=== PATIENT | female | born 1990 | race Caucasian/White ===

== ENCOUNTER 2017-07-03 07:12 | Emergency (ER) | payer BC ==
[2017-07-03] MEDS ORDERED: Ibuprofen PED LIQ 100 MG/5 ML UDC PO ONE (07:33)
--- NOTE | 2017-07-03 07:40 | UC ---
FLU HPI - HPI Summary HPI Summary: 3 DAYS OF COUGH, CONGESTION, BARAJAS, FEVER TMAX 102.5, CHILLS, MYALGIAS AND FATIGUE. NO ST, N/V/D. NO FLU SHOT THIS SEASON. - History of Current Complaint Chief Complaint: UCRespiratory Stated Complaint: FLU SYMPTOMS Time Seen by Provider: 07/03/17 07:14 Hx Obtained From: Patient Hx Last Menstrual Period: 07/03/2017 Onset/Duration: Gradual Onset, Lasting Days, Still Present Severity Currently: Moderate Severity Initially: Moderate Pain Intensity: 0 Pain Scale Used: 0-10 Numeric Associated Signs & Symptoms: Positive: Fever, Myalgia, Cough, Nasal Congestion, Headache - Allergy/Home Medications Allergies/Adverse Reactions: Allergies Allergy/AdvReac Type Severity Reaction Status Date / Time No Known Allergies Allergy Verified 07/03/17 07:24 Home Medications: Home Medications Ibuprofen 3 teasp PO Q6HR PRN 07/03/17 [History Confirmed 07/03/17] PMH/Surg Hx/FS Hx/Imm Hx Previously Healthy: Yes - Surgical History Surgical History: None - Family History Known Family History: Negative: Hypertension - Social History Alcohol Use: Rare Substance Use Type: None Smoking Status (MU): Never Smoked Tobacco Review of Systems Constitutional: Fever, Chills, Fatigue ENT: Ear Ache, Nasal Discharge Respiratory: Cough Cardiovascular: Negative Gastrointestinal: Negative Musculoskeletal: Myalgia Neurological: Headache All Other Systems Reviewed And Are Negative: Yes Physical Exam Triage Information Reviewed: Yes Appearance: Well-Appearing, No Pain Distress, Well-Nourished Vital Signs: Initial Vital Signs Temp 101.2 F 07/03/17 07:26 Pulse 96 07/03/17 07:26 Resp 18 07/03/17 07:26 BP 119/71 07/03/17 07:26 Pulse Ox 98 07/03/17 07:26 Vital Signs Reviewed: Yes Eyes: Positive: Conjunctiva Clear ENT: Positive: Hearing grossly normal, Pharyngeal erythema, TMs normal Neck: Positive: Supple, Nontender, No Lymphadenopathy Respiratory Exam: Normal Cardiovascular: Positive: Tachycardia Abdomen Description: Positive: Soft Musculoskeletal: Positive: No Edema Neurological: Positive: Alert Psychological: Positive: Age Appropriate Behavior Skin: Negative: rashes Diagnostics - Laboratory Diagnostic Studies Completed/Ordered: FLU B POSITIVE Flu Course/Dx - Differential Dx/Diagnosis Provider Diagnoses: INFLUENZA B Discharge - Discharge Plan Condition: Stable Disposition: HOME Patient Education Materials: Influenza (ED) Forms: *Work Release Referrals: No Primary Care Phys,NOPCP [Primary Care Provider] - Additional Instructions: SWAB POSITIVE FOR INFLUENZA B. OTC MEDS NEEDED FOR FEVER, BODY ACHES. STAY WELL HYDRATED AND RESTED. SEEK FOLLOW-UP IF YOU ARE NOT IMPROVING EXPECTED. CALL THE NUMBER BELOW FOR ASSISTANCE IN ESTABLISHING WITH A PCP An additional resource available to assist in finding the appropriate physician for your health care needs is [facility] ([facility]). You may contact them by calling [phone].
== END 2017-07-03 08:26 | disposition home or self-care (01) ==
LOC: UCEAST 07:12
DX: J10.1 Influenza due to other identified influenza virus with other respiratory manifestations (principal)
CPT/HCPCS: 87502; 99202; G0463

== ENCOUNTER 2017-07-05 07:23 | Emergency (ER) | payer BC ==
[2017-07-05] MEDS ORDERED: Acetaminophen ADULT LIQ* 650 MG/20.3 ML UDC PO ONE (08:03)
[2017-07-05] MEDS ORDERED: Dexamethasone IV* 10 MG in NS 0.9% 50 ML* 50 ML IVPB ONE (08:03)
[2017-07-05] MEDS ORDERED: guaiFENesin LIQ* 100 MG/5 ML UDC PO ONE (08:04)
[2017-07-05] MEDS ORDERED: Dexamethasone IV* 4 MG/ML 1 ML (4 MG) IM ONE (08:10)
--- NOTE | 2017-07-05 08:36 | RAD ---
INDICATION: Cough COMPARISON: None TECHNIQUE: PA and lateral dual-energy views were obtained. FINDINGS: Bones/Soft Tissues: There are no acute bony findings. Cardiomediastinal: The cardiomediastinal silhouette is normal. Lungs: There are no infiltrates. Pleura: There are no pleural effusions. Other: None IMPRESSION: NORMAL CHEST.
[2017-07-05 09:11] VITALS: BP 98/67
--- NOTE | 2017-07-05 09:17 | UC ---
Respiratory Complaint HPI - HPI Summary HPI Summary: 26 year old female here with 4 days of cough, malaise. Recently seen here and tested positive for influenza. No n/v/d Reports new symptoms of sore throat. No odynophagia or dysphagia. - History of Current Complaint Chief Complaint: UCRespiratory Stated Complaint: FLU SYMPTOMS Time Seen by Provider: 07/05/17 07:24 Hx Obtained From: Patient Hx Last Menstrual Period: 07/03/17 Onset/Duration: Sudden Onset, Gradual Onset Timing: Constant Severity Initially: Mild Pain Intensity: 8 Character: Cough: Nonproductive Associated Signs And Symptoms: Positive: Fever, Nasal Congestion. Negative: Pleuritic Chest Pain, Hemoptysis, Calf Pain - Allergies/Home Medications Allergies/Adverse Reactions: Allergies Allergy/AdvReac Type Severity Reaction Status Date / Time No Known Allergies Allergy Verified 07/05/17 07:35 Home Medications: Home Medications Acetaminophen [Non-Aspirin Jr Strength] 3 tab PO Q6H PRN 07/05/17 [History Confirmed 07/05/17] PMH/Surg Hx/FS Hx/Imm Hx Previously Healthy: Yes - Surgical History Surgical History: None - Family History Known Family History: Negative: Hypertension - Social History Alcohol Use: Rare Substance Use Type: None Smoking Status (MU): Never Smoked Tobacco Review of Systems Constitutional: Fever Skin: Negative Eyes: Negative ENT: Negative Respiratory: Cough Cardiovascular: Negative Gastrointestinal: Negative Genitourinary: Negative Motor: Negative Neurovascular: Negative Musculoskeletal: Negative Neurological: Negative Psychological: Negative All Other Systems Reviewed And Are Negative: Yes Physical Exam Triage Information Reviewed: Yes Appearance: No Pain Distress Vital Signs: Initial Vital Signs Temp 37.9 C 07/05/17 07:31 Pulse 92 07/05/17 07:31 Resp 16 07/05/17 07:31 BP 122/86 07/05/17 07:31 Pulse Ox 100 07/05/17 07:31 ENT: Positive: Pharyngeal erythema Neck exam: Normal Neck: Positive: Supple, Nontender, No Lymphadenopathy. Negative: Nuchal Rigidity Respiratory: Positive: Chest non-tender, Other: - coarse breath sounds Cardiovascular: Positive: No Murmur - Tachy Musculoskeletal Exam: Normal Psychological Exam: Normal Skin Exam: Normal UC Diagnostic Evaluation - Laboratory O2 Sat by Pulse Oximetry: 100 - Radiology Xray Interpretation: No Acute Changes Radiology Interpretation Completed By: Radiologist Respiratory Course/Dx - Course Course Of Treatment: Patient symptoms improved. Afebrile. - Differential Dx/Diagnosis Differential Diagnosis/HQI/PQRI: Bronchitis, Laryngitis, Lower Resp Infection, Sinusitis Provider Diagnoses: Influenza. Pharyngitis. Patient non-toxic, well appearing. No concern for superimposed infection. CXR clear here. Discharge - Discharge Plan Condition: Good Disposition: HOME Prescriptions: Acetaminop/Codeine 30 MG TAB* [Tylenol/Codeine 30 MG TAB*] 1 tab PO Q8H PRN #12 tab MDD 2 PRN Reason: Cough Benzonatate CAP* [Tessalon 100 MG CAP*] 100 mg PO TID PRN #30 cap PRN Reason: Cough Patient Education Materials: Influenza (ED) Forms: *Work Release Referrals: No Primary Care Phys,NOPCP [Primary Care Provider] -
== END 2017-07-05 09:25 | disposition home or self-care (01) ==
LOC: UCEAST 07:23
DX: J11.1 Influenza due to unidentified influenza virus with other respiratory manifestations (principal); J02.9 Acute pharyngitis, unspecified
CPT/HCPCS: 71046; 96372; 99212; A9270-GY; G0463; J1100

== ENCOUNTER 2017-07-06 23:03 | Emergency (ER) | payer BC ==
[2017-07-06] MEDS ORDERED: NS 0.9% 1000 ML* 2,000 ML IV ONE (23:54)
[2017-07-06] MEDS ORDERED: Oseltamivir CAP* 75 MG CAP PO ONE (23:57)
[2017-07-07 00:25] LABS: ABS Basophils 0 10^3/ul (0-0.2); ABS Eosinophils 0 10^3/ul (0-0.6); ABS Lymphocytes 0.6 10^3/ul (1.0-4.8); ABS Monocytes 0.2 10^3/ul (0-0.8); ABS Neutrophils 1.3 10^3/ul (1.5-7.7); ABS Nucleated RBC 0 10^3/ul; Eosinophil % 0 % (0-6); Hematocrit 33 % (35-47); Hemoglobin 10.9 g/dl (12.0-16.0); Lymphocyte % 28.4 % (25-47); Mean Corpuscular HGB Conc 33 g/dl (31-36); Mean Corpuscular Hemoglobin 27 pg (27-31); Mean Corpuscular Volume 80 fL (80-97); Mean Platelet Volume 9 um3 (7.4-10.4); Nucleated Red Blood Cells % 0; Platelet Count 110 10^3/ul (150-450); Red Blood Count 4.11 10^6/ul (4.0-5.4); Red Cell Distribution Width 14 % (10.5-15); White Blood Count 2.1 10^3/ul (3.5-10.8)
[2017-07-07] MEDS ORDERED: Ondansetron INJ* 2 MG/ML VIAL IV ONE (00:29)
[2017-07-07] MEDS ORDERED: Oseltamivir SUSP 75 MG dose* 75 MG/12.5 ML ORAL.SYRIN PO ONE (00:42)
--- NOTE | 2017-07-07 01:04 | ED ---
HPI Febrile Illness - HPI Summary HPI Summary: Patient is a 26-year-old female presenting to the ED with generalized illness. She endorses feeling weak and stating she was diagnosed with the flu 3 days ago but was not given Tamiflu as it was "too late". While attempting to go to the restroom and her apartment this afternoon she states she lost vision for a moment and became very weak. Her vision is normal at this time, and she denies cough, congestion. She has not been taking medication at home, however she took one dose of Robitussin 4 hours ago which had acetaminophen. She denies any shortness of breath, chest pain, abdominal pain, urinary symptoms, back pain. - History of Current Complaint Chief Complaint: EDFluSymptoms Time Seen by Provider: 07/06/17 23:20 Hx Obtained From: Patient Onset/Duration: Started Hours Ago Timing: Constant Initial Severity: Moderate Current Severity: Moderate Pain Intensity: 0 Pain Scale Used: 0-10 Numeric Aggravating Factors: Nothing Alleviating Factors: Nothing - Risk Factors Pseudomonas Risk Factors: Negative Serious Bacterial Infection Risk Factors: Negative - Allergy/Home Medications Allergies/Adverse Reactions: Allergies Allergy/AdvReac Type Severity Reaction Status Date / Time No Known Allergies Allergy Verified 07/06/17 23:29 PMH/Surg Hx/FS Hx/Imm Hx Previously Healthy: Yes - Immunization History Date of Tetanus Vaccine: unk Date of Influenza Vaccine: none Hx Pertussis Vaccination: No Immunizations Up to Date: Unable to Obtain/Confirm Infectious Disease History: No Infectious Disease History: Denies: Traveled Outside the [place] in Last 30 Days - Social History Occupation: Employed Full-time Lives: With Family Alcohol Use: Rare Hx Substance Use: No Substance Use Type: Reports: None Hx Tobacco Use: No Smoking Status (MU): Never Smoked Tobacco Review of Systems Positive: Fatigue. Negative: Fever, Chills Eyes: Negative Cardiovascular: Negative Respiratory: Negative Negative: Abdominal Pain, Vomiting, Diarrhea, Nausea Positive: no symptoms reported, see HPI Positive: Myalgia Positive: Weakness All Other Systems Reviewed And Are Negative: Yes Physical Exam Triage Information Reviewed: Yes Vital Signs On Initial Exam: Initial Vitals Temp Pulse Resp BP Pulse Ox 99.6 F 64 12 111/50 100 07/06/17 23:26 07/06/17 23:26 07/06/17 23:26 07/06/17 23:26 07/06/17 23:26 Vital Signs Reviewed: Yes Appearance: Positive: Well-Nourished, Ill-Appearing Skin: Positive: Warm, Skin Color Reflects Adequate Perfusion Head/Face: Positive: Normal Head/Face Inspection Eyes: Positive: EOMI, Conjunctiva Clear Neck: Positive: Supple, No Lymphadenopathy Respiratory/Lung Sounds: Positive: Clear to Auscultation, Breath Sounds Present Cardiovascular: Positive: Normal, Pulses are Symmetrical in both Upper and Lower Extremities Musculoskeletal: Positive: Normal, Strength/ROM Intact Neurological: Positive: Sensory/Motor Intact, Alert, Oriented to Person Place, Time, Speech Normal Psychiatric: Positive: Normal, Affect/Mood Appropriate AVPU Assessment: Alert Diagnostics - Vital Signs Vital Signs Temp Pulse Resp BP Pulse Ox 07/06/17 23:26 99.6 F 64 12 111/50 100 - Laboratory Lab Results: Lab Results 07/07/17 07/07/17 07/07/17 Range/Units 00:03 00:03 00:03 WBC 2.1 L (3.5-10.8) 10^3/ul RBC 4.11 (4.0-5.4) 10^6/ul Hgb 10.9 L (12.0-16.0) g/dl Hct 33 L (35-47) % MCV 80 (80-97) fL MCH 27 (27-31) pg MCHC 33 (31-36) g/dl RDW 14 (10.5-15) % Plt Count 110 L (150-450) 10^3/ul MPV 9 (7.4-10.4) um3 Neut % (Auto) 62.0 (38-83) % Lymph % (Auto) 28.4 (25-47) % [place] % (Auto) 9.5 H (0-7) % Eos % (Auto) 0 (0-6) % Baso % (Auto) 0.1 (0-2) % Absolute Neuts (auto) 1.3 L (1.5-7.7) 10^3/ul Absolute Lymphs (auto) 0.6 L (1.0-4.8) 10^3/ul Absolute Monos (auto) 0.2 (0-0.8) 10^3/ul Absolute Eos (auto) 0 (0-0.6) 10^3/ul Absolute Basos (auto) 0 (0-0.2) 10^3/ul Absolute Nucleated RBC 0 10^3/ul Nucleated RBC % 0 Sodium 137 (133-145) mmol/L Potassium 3.4 L (3.5-5.0) mmol/L Chloride 105 (101-111) mmol/L Carbon Dioxide 25 (22-32) mmol/L Anion Gap 7 (2-11) mmol/L BUN 10 (6-24) mg/dL Creatinine 0.75 (0.51-0.95) mg/dL Est GFR ( Amer) 118.3 (>60) Est GFR (Non-Af Amer) 92.0 (>60) BUN/Creatinine Ratio 13.3 (8-20) Glucose 101 H (70-100) mg/dL Lactic Acid 0.8 (0.5-2.0) mmol/L Calcium 8.1 L (8.6-10.3) mg/dL Total Bilirubin 0.20 (0.2-1.0) mg/dL AST 24 (13-39) U/L ALT 12 (7-52) U/L Alkaline Phosphatase 34 (34-104) U/L C-Reactive Protein 4.36 (< 5.00) mg/L Total Protein 6.0 L (6.4-8.9) g/dL Albumin 3.7 (3.2-5.2) g/dL Globulin 2.3 (2-4) g/dL Albumin/Globulin Ratio 1.6 (1-3) Beta HCG, Quant < 0.60 mIU/mL Result Diagrams: 07/07/17 00:03 07/07/17 00:03 Lab Statement: Any lab studies that have been ordered have been reviewed, and results considered in the medical decision making process. Course/Dx - Course Course Of Treatment: During the course of treatment the patient's evaluated for flulike symptoms. She is unsure if she has been having a fever, but has been feeling diaphoretic. She was given 1 L of fluids in route to the ED. Upon arrival she is given Zofran and another liter of fluids. She denies any pain. Labs obtained which showed 2.1 white blood count. X-ray obtained which is normal for any findings with no active cardiopulmonary disease. X-ray read by Dr. Koenig and myself. She is given Tamiflu 75 mg, although outside the window of recommended successful therapy, she continues to worsen. She is OK with plan and discharge for fluids, tamiflu and zofran. - Febrile Illness Differential Diagnoses: Fever of Unknown Origin - Diagnoses Provider Diagnoses: Influenza A Discharge - Discharge Plan Condition: Stable Disposition: HOME Prescriptions: Ondansetron ODT TAB* [Zofran 4 MG Odt TAB*] 4 mg PO Q6H PRN #12 tab.odt MDD 4 PRN Reason: Nausea Oseltamivir SUSP* BOTTLE [Tamiflu SUSP* BOTTLE] 75 mg PO BID #1 btl Patient Education Materials: Influenza (ED) Referrals: No Primary Care Phys,NOPCP [Primary Care Provider] - Additional Instructions: Drink plenty of fluids Tylenol 650 mg 3 times daily Zofran as needed for nausea Eat small amounts at a time
[2017-07-07 02:08] LABS: Urine Appearance Clear; Urine Blood 3+ (Negative); Urine Color Straw; Urine Ketones Trace (Negative); Urine Protein Negative (Negative); Urine Specific Gravity 1.004 (1.010-1.030); Urine Urobilinogen Negative (Negative)
[2017-07-07 02:38] VITALS: BP 92/55
--- NOTE | 2017-07-07 07:37 | RAD ---
HISTORY: Chest pain COMPARISONS: None VIEWS: 1: frontal portable view of the chest at 12:45 AM FINDINGS: LINES AND TUBES: None. CARDIOMEDIASTINAL SILHOUETTE: The cardiomediastinal silhouette is normal for portable technique. PLEURA: The costophrenic angles are sharp. No pleural abnormalities are noted. LUNG PARENCHYMA: The lungs are clear. ABDOMEN: The upper abdomen is clear. There is no subphrenic gas. BONES AND SOFT TISSUES: No bone or soft tissue abnormalities are noted. IMPRESSION: NO ACTIVE CARDIOPULMONARY DISEASE.
[2017-07-07] MEDS ORDERED: Oseltamivir SUSP 75 MG dose* 75 MG/12.5 ML ORAL.SYRIN PO SCH (09:00)
== END 2017-07-07 02:37 | disposition home or self-care (01) ==
LOC: ED 23:03 → MERGE 23:03 → ED 07-07 02:37
DX: J10.1 Influenza due to other identified influenza virus with other respiratory manifestations (principal)
CPT/HCPCS: 36415; 71045; 80053; 81003; 81015; 83605; 84702; 85025; 86140; 87086; 96361; 96374; 99283; A9270-GY; J2405

== ENCOUNTER 2019-07-08 11:04 | Emergency (ER) | payer BC ==
--- NOTE | 2019-07-08 11:30 | UC ---
FLU HPI - HPI Summary HPI Summary: 28 yo female presents with sore throat. She tells me that yesterday she developed a sore throat. Today has a fever, fatigue, and body aches. She has not taken anything OTC for her symptoms. She is eating, drinking, and tolerating po well. She denies sinus symptoms, rash, cough, abdominal pain, n/v - History of Current Complaint Stated Complaint: SORE THROAT,BODY ACHES,FEVER Time Seen by Provider: 07/08/19 11:30 Hx Obtained From: Patient Hx Last Menstrual Period: 07/03/17 Onset/Duration: Sudden Onset Severity Currently: Moderate Severity Initially: Mild Pain Intensity: 6 Pain Scale Used: 0-10 Numeric - Allergy/Home Medications Allergies/Adverse Reactions: Allergies Allergy/AdvReac Type Severity Reaction Status Date / Time No Known Allergies Allergy Verified 07/08/19 11:32 Home Medications: Home Medications Amoxicillin PO (*) [Amoxicillin 400 MG/5 ML SUSP*] 480 mg PO BID 10 Days #120 ml 07/08/19 [Rx] PMH/Surg Hx/FS Hx/Imm Hx - Additional Past Medical History Additional PMH: None - Surgical History Surgical History: None - Family History Known Family History: Positive: None Negative: Hypertension - Social History Lives: With Family Alcohol Use: Rare Substance Use Type: None Smoking Status (MU): Never Smoked Tobacco Review of Systems All Other Systems Reviewed And Are Negative: No Constitutional: Positive: Fever, Other - Body aches Skin: Positive: Negative Eyes: Positive: Negative ENT: Positive: Sore Throat Respiratory: Positive: Negative Cardiovascular: Positive: Negative Gastrointestinal: Positive: Negative Neurological/Mental Status: Positive: Negative Psychological: Positive: Negative Physical Exam - Summary Physical Exam Summary: GENERAL: NAD. WDWN. No pain distress. SKIN: No rashes, sores, lesions, or open wounds. HEENT: Head: AT/NC Eyes: EOM intact. Conjunctiva clear without inflammation or discharge. Ears: Hearing grossly normal. TMs intact, no bulging, erythema, or edema. Nose: Nasal mucosa pink and moist. NTTP maxillary and frontal sinus. Throat: Posterior oropharynx with moderate erythema. No exudates or tonsillar enlargement. Uvula midline. NECK: Supple. Mild ttp tonsillar lad b/l. CHEST: CTAB. No r/r/w. No accessory muscle use. Breathing comfortably and in no distress. CV: RRR. Pulses intact. Cap refill <2seconds NEURO: Alert. PSYCH: Age appropriate behavior. Triage Information Reviewed: Yes Vital Signs: Vital Signs: Temp Pulse Resp BP Pulse Ox 100.9 F 96 18 109/72 100 07/08/19 11:26 07/08/19 11:26 07/08/19 11:26 07/08/19 11:26 07/08/19 11:26 Laboratory Tests 07/08/19 11:42 Influenza A (Rapid) Negative Influenza B (Rapid) Negative Vital Signs Reviewed: Yes Flu Course/Dx - Course Course Of Treatment: Pt declined strep swab testing today as this test always makes her vomit. POC flu negative. Clinically, she appears to have strep - thus will treat her for this today. - Differential Dx/Diagnosis Provider Diagnosis: Strep throat Discharge ED - Sign-Out/Discharge Documenting (check all that apply): Patient Departure All imaging exams completed and their final reports reviewed: No Studies - Discharge Plan Condition: Stable Disposition: HOME Prescriptions: Amoxicillin PO (*) [Amoxicillin 400 MG/5 ML SUSP*] 480 mg PO BID 10 Days #120 ml Patient Education Materials: Strep Throat (ED) Referrals: No Primary Care Phys,NOPCP [Primary Care Provider] - Additional Instructions: If you develop a fever, shortness of breath, chest pain, new or worsening symptoms - please call your PCP or go to the ED immediately. Your exam today was most consistent with strep throat and you are being treated for this. Unfortunately, we were unable to collect a throat swab to confirm this - therefore if your symptoms do not improve within 3-4 days I strongly recommend you be rechecked - Billing Disposition and Condition Condition: STABLE Disposition: Home
[2019-07-08 11:32] VITALS: BP 109/72
[2019-07-08] MEDS ORDERED: Acetaminophen PED LIQ* 160 MG/5 ML UDC PO ONE (11:44)
[2019-07-08 11:54] LABS: Influenza A Molecular Negative (Negative); Influenza B Molecular Negative (Negative)
== END 2019-07-08 11:45 | disposition home or self-care (01) ==
LOC: UCEAST 11:04
DX: J02.0 Streptococcal pharyngitis (principal)
CPT/HCPCS: 99212; A9270-GY; G0463